=== PATIENT | male | born 1950 | race Caucasian/White ===

== ENCOUNTER 2017-03-29 06:29 | Inpatient (IN) | payer MEDICARE ==
[~2017-03-29] VITALS: Ht 172.7 cm; Wt 92.4 kg
[2017-03-29 07:00] LABS: BASOPHILS 0.1 % (0-2); EOSINOPHILS 0.3 % (0-7); HEMATOCRIT 49.1 % (42.0-54.0); HEMOGLOBIN 16.8 g/dL (13.5-17.5); IMMATURE GRANULOCYTES 0.2 % (0-5); LYMPHOCYTES 10.7 % (15-50); MCH 32.6 pg (26.0-34.0); MCHC 34.2 g/dL (31.0-37.0); MCV 95.3 fL (80.0-100.0); MEAN PLATELET VOLUME 9.4 fL (7.4-10.4); MONOCYTES 5.2 % (2-11); NEUTROPHILS 83.5 % (40-80); PLATELET COUNT 130 10x3/uL (130-400); RBC 5.15 10x6/uL (4.20-6.10); RDW 12.8 % (11.5-14.5)
[2017-03-29 07:24] LABS: ALBUMIN 3.9 g/dL (3.4-5.0); ALKALINE PHOSPHATASE 72 U/L (46-116); ALT (SGPT) 20 U/L (10-68); BILIRUBIN - TOTAL 1.39 mg/dL (0.2-1.3); CALC OSMOLALITY 274 mosm/kg (275-300); CALCIUM 8.6 mg/dL (8.5-10.1); CARBON DIOXIDE 28.3 mmol/L (21.0-32.0); CHLORIDE - SERUM 100 mmol/L (98-107); CREATININE - SERUM 1.1 mg/dL (0.6-1.3); GLUCOSE 124 mg/dL (74-106); POTASSIUM - SERUM 4.3 mmol/L (3.5-5.1); PROTEIN - SERUM 7.2 g/dL (6.4-8.2); SODIUM 137 mmol/L (136-145); UREA NITROGEN 13 mg/dL (7-18); eGFR NON AFRICAN AMERICAN 71 mL/min (90-120)
[2017-03-29 07:36] LABS: CKMB 4.3 U/L (0.0-3.6); CREATINE KINASE 150 UL (21-232)
[2017-03-29 07:38] LABS: TROPONIN-I 0.016 ng/mL (0.000-0.060)
--- NOTE | 2017-03-29 14:26 | NUR ---
TRANSFER FROM ER BY W/C. DUANEINTED TO ROOM. CALL LIGHT IN REACH. WILL CONT. PLAN OF CARE.
[2017-03-29] MEDS ORDERED: BETAPACE 80 MG80 MG PO (14:32)
[2017-03-29] MEDS ORDERED: METOPROLOL TART50 MG PO (14:33)
[2017-03-29] MEDS ORDERED: ZOCOR20 MG PO (14:34)
[2017-03-29] MEDS ORDERED: PRINIVIL20 MG PO (14:34)
[2017-03-29] MEDS ORDERED: LEVOTHYROXINE112 MCG PO (14:35)
[2017-03-29] MEDS ORDERED: PLAVIX75 MG PO (14:35)
[2017-03-29] MEDS ORDERED: ELIQUIS5 MG PO (14:35)
[2017-03-29] MEDS ORDERED: FLOMAX0.4 MG PO (14:36)
[2017-03-29] MEDS ORDERED: ADVAIR 250/501 DISK INH (14:36)
[2017-03-29] MEDS ORDERED: PROAIR HFA8.5 GM INH (14:38)
[2017-03-29 14:55] VITALS: BP 147/87; BMI 32.0
--- NOTE | 2017-03-29 15:09 | NUR ---
ARRIVED FROM ER VIA WC. SOB O2 ON AT 2 L NC. IV IN L FA. SL. MONITOR SHOWS UAF. CARDIZEM GTT STARTED @ 15. WILL CONTINUE TO MONITOR. SEE ASSESSMENT FOR FURTHER EVAL
[2017-03-29 16:35] VITALS: BP 147/87
--- NOTE | 2017-03-29 19:32 | NUR ---
PT SITTING ON SIDE OF BED. CARDIZEM INFUSING @ 15 TO LEFT IV. PT ASKING FOR BREATHING TREATMENT. WILL PAGE RESPRITORY. PT STATES HE NEEDS TO GET TREATMENT AND LEAVE3 BECAUSE HE CARES FOR HIS WHO IS AN AMPUTIEE. PT DENIES ANY OTHER NEEDS. NO S/S OF DISTRESS. BED LOW AND CALL LIGHT IN REACH. WILL CPOC
[2017-03-29 21:56] VITALS: BP 111/63
--- NOTE | 2017-03-30 04:29 | NUR ---
LASIX EARLY- PT C/O DYSPNEA AND SOB. SITTING ON SIDE PT HAS BEEN C/O NEEDING BREATHING TREATMENT BUT IT IS UNAVALIBLE BECAUSE THEY ARE Q6H. PT STATES HE IS VERY UPSET AND SAYS IF HE NEEDS TO LEAVE TO TREAT HIS SYMPTOMS HE WILL. STATES HE HAS BEEN DEALING WITH THESE SYMPTOMS FOR A LONG TIME AND WANTS HIS MEDS TO HELP HIM OR HE WILL LEAVE. PT HAS CRACKLES IN ALL LOBES. PT ON 2L OF O2. LASIX GIVEN EARLY FOR MILD DISTRESS. PT STILL WANTING BREATH TREATMENT LASHANDA. WILL CPOC
--- NOTE | 2017-03-30 05:19 | NUR ---
PT HAS HAD 150 OUTPUT OF CONCENTRATED AJITH URINE. PT DOING A LITTLE BETTER STILL SOB AND HAS DYSPNEA. ASKED AGAIN ABOUT BREATHING TREATMENT. TOLD PT IT CAN BE GIVEN AROUND 0600. RESPRITORY AWARE AND WILL BE HERE AT THAT TIME .PT DENIES ANY NEEDS. BED LOW CALL LIGHT IN REACH.WILL CPOC
[2017-03-30 06:09] VITALS: BP 91/59
--- NOTE | 2017-03-30 06:14 | NUR ---
PT ASLEEP. RESPIRATIONS IRREGULAR UNLABORED. PT AROUSES TO VERBAL STIMULI. STATES HE FEELS MUCH BETTER. STATES HE DOES NOT FEEL LIKE HE IS DROWNING ANY LONGER NOW THAT HE TOOK THE LASIX EARLY. PT EVEN STATED HE THANKS HE CAN WAIT UNTIL 0700 WHEN THE RESPRITORY COMES TO FLOOR WITH ROUND FOR HIS TREATMENT. PT DENIES ANY NEEDS. NO S/S OF DISTRESS.BED LOW AND CALL LIGHT IN REACH. WILL CPOC
[2017-03-30 06:47] LABS: BASOPHILS 0.1 % (0-2); EOSINOPHILS 0 % (0-7); HEMATOCRIT 48.5 % (42.0-54.0); HEMOGLOBIN 16.4 g/dL (13.5-17.5); IMMATURE GRANULOCYTES 0.3 % (0-5); LYMPHOCYTES 7.6 % (15-50); MCH 32.5 pg (26.0-34.0); MCHC 33.8 g/dL (31.0-37.0); MCV 96.2 fL (80.0-100.0); MEAN PLATELET VOLUME 10.1 fL (7.4-10.4); MONOCYTES 3.8 % (2-11); NEUTROPHILS 88.2 % (40-80); RBC 5.04 10x6/uL (4.20-6.10); WBC 18.6 10x3/uL (4.8-10.8)
[2017-03-30 07:01] LABS: ALBUMIN 3.6 g/dL (3.4-5.0); ANION GAP 10.9 mmol/L (8-16); BILIRUBIN - TOTAL 0.71 mg/dL (0.2-1.3); CALCIUM 8.5 mg/dL (8.5-10.1); CARBON DIOXIDE 28.6 mmol/L (21.0-32.0); POTASSIUM - SERUM 4.5 mmol/L (3.5-5.1); PROTEIN - SERUM 7.2 g/dL (6.4-8.2)
[2017-03-30 07:06] LABS: PLATELET COUNT 162 10x3/uL (130-400)
[2017-03-30 07:09] LABS: CREATININE - SERUM 1.8 mg/dL (0.6-1.3)
--- NOTE | 2017-03-30 07:30 | NUR ---
PT SITTING UP IN BED DENIES NEEDS AT THIS TIME WILL CONT TO MONITOR
[2017-03-30 08:03] LABS: MAGNESIUM - SERUM 2.3 mg/dL (1.8-2.4); PHOSPHOROUS 5.5 mg/dL (2.5-4.9)
[2017-03-30 08:43] VITALS: BP 101/64
[2017-03-30 12:37] VITALS: Ht 172.7 cm; Wt 92.4 kg
[2017-03-30 13:09] VITALS: BP 122/65
[2017-03-30 17:17] VITALS: BP 109/59
--- NOTE | 2017-03-30 17:43 | NUR ---
PT SITTING UP IN BED DENIES NEEDS
--- NOTE | 2017-03-30 18:44 | NUR ---
OT NOTE: PT COMPLETED BED MOB WITH MIN A. PT COMPLETED RUE AROM AXS FOR INCREASED AX TOLERANCE. PT COMPLETED SIMPLE ADL WITH SET UP. THANK YOU, RIGOBERTO MEJIA/Sherie
[2017-03-30 21:10] VITALS: BP 98/46
[2017-03-31 00:10] VITALS: BP 95/52
[2017-03-31 05:08] LABS: BASOPHILS 0 % (0-2); EOSINOPHILS 0 % (0-7); IMMATURE GRANULOCYTES 0.2 % (0-5); LYMPHOCYTES 9.7 % (15-50); MCH 32.1 pg (26.0-34.0); MCHC 33.3 g/dL (31.0-37.0); MCV 96.4 fL (80.0-100.0); MEAN PLATELET VOLUME 10.1 fL (7.4-10.4); MONOCYTES 2.2 % (2-11); NEUTROPHILS 87.9 % (40-80); PLATELET COUNT 155 10x3/uL (130-400); RBC 4.67 10x6/uL (4.20-6.10); RDW 13.1 % (11.5-14.5)
[2017-03-31 05:11] VITALS: BP 107/55
[2017-03-31 05:22] LABS: WBC 13.2 10x3/uL (4.8-10.8)
[2017-03-31 05:31] LABS: ALBUMIN 3.2 g/dL (3.4-5.0); ANION GAP 12.4 mmol/L (8-16); BILIRUBIN - TOTAL 0.41 mg/dL (0.2-1.3); CALCIUM 8.1 mg/dL (8.5-10.1); CREATININE - SERUM 1.9 mg/dL (0.6-1.3); MAGNESIUM - SERUM 2.3 mg/dL (1.8-2.4); PHOSPHOROUS 5.3 mg/dL (2.5-4.9); POTASSIUM - SERUM 4.4 mmol/L (3.5-5.1); PROTEIN - SERUM 6.7 g/dL (6.4-8.2)
--- NOTE | 2017-03-31 06:25 | NUR ---
PT ASLEEP RESPIRATIONS EVEN AND UNLABORED. PT WOKE FROM VERBAL STIMULI. PT STATED HE DOESNT KNOW WHAT WAS IN THAT BREATHING TREATMENT BUT IT WORKED... PT WAS ABLE TO REST WELL THROUGHOUT THE NIGHT, THE NIGHT BEFORE HE WAS UP ALL NIGHT. PT DENIES ANY NEEDS AT THIS TIME. NO S/S OF DISTRESS. BED LOW AND CALL LIGHT IN REACH. WILL CPOC
--- NOTE | 2017-03-31 07:30 | NUR ---
RECEIVED PT IN BED AAOX4 RESP UNLABORED SKIN W/D PT DEINES ANY NEEDS OR DISCOMFORT AT THIS TIME NAD NOTED
[2017-03-31 08:06] VITALS: BP 113/59
[2017-03-31 12:20] VITALS: BP 100/51
[2017-03-31 15:31] VITALS: BP 113/62
[2017-03-31 21:08] VITALS: BP 114/55
--- NOTE | 2017-03-31 22:41 | NUR ---
INITIAL ROUNDS COMPLETED AT 1910 HRS. PT REQUESTING BREATHING TX. RT NOTIFIED. ASSESSMENT COMPLETED AT 1950 HRS. VS. A-FLUTTER PER CM HR 96. CARDIZEM DRIP RESTARTED. O2 2LNC. LUNGS DIMINISHED IN BASES BILAT WITH BILAT EXP WHEEZES NOTED. IV TO LAC WITH NS AT 50CC/HR AND CARDIZEM AT 15CC/HR. IV PATENT. SCATTERED BRUISES NOTED OT BILAT ARMS. PM MEDS GIVEN. PT CURRENTLE RESTING WITH EYES CLOSED. RESP EVEN AND REGULAR. SR UP X2, CALL LIGHT WITHIN REACH.
--- NOTE | 2017-04-01 00:12 | NUR ---
A-FLUTTER PER CM HR 105. PT DENIES ANY DISCOMFORT. RT TX IN PROGRESS. WILL CONTINUE TO MONITOR.
[2017-04-01 01:27] VITALS: BP 113/73
--- NOTE | 2017-04-01 02:13 | NUR ---
PT RESTING WITH EYES CLOSED. RESP EVEN AND REGULAR. A-FLUTTER PER CM HR 86. WILL CONTINUE TO MONITOR.
--- NOTE | 2017-04-01 04:50 | NUR ---
PT RESTING WITH EYES CLOSED. RESP EVEN AND REGULAR. SR UP X1, CALL LIGHT WITHIN REACH.
[2017-04-01 05:38] LABS: BASOPHILS 0 % (0-2); EOSINOPHILS 0 % (0-7); HEMATOCRIT 43.5 % (42.0-54.0); HEMOGLOBIN 14.9 g/dL (13.5-17.5); IMMATURE GRANULOCYTES 0.2 % (0-5); LYMPHOCYTES 9.8 % (15-50); MCH 32.3 pg (26.0-34.0); MCHC 34.3 g/dL (31.0-37.0); MONOCYTES 2.7 % (2-11); NEUTROPHILS 87.3 % (40-80); PLATELET COUNT 164 10x3/uL (130-400); RBC 4.62 10x6/uL (4.20-6.10); RDW 12.8 % (11.5-14.5); WBC 10.5 10x3/uL (4.8-10.8)
[2017-04-01 05:49] LABS: MCV 94.2 fL (80.0-100.0)
[2017-04-01 06:05] LABS: ANION GAP 11.2 mmol/L (8-16); BILIRUBIN - TOTAL 0.5 mg/dL (0.2-1.3); CALCIUM 8.2 mg/dL (8.5-10.1); CARBON DIOXIDE 27.1 mmol/L (21.0-32.0); CREATININE - SERUM 1.4 mg/dL (0.6-1.3); POTASSIUM - SERUM 4.3 mmol/L (3.5-5.1); PROTEIN - SERUM 6.4 g/dL (6.4-8.2)
--- NOTE | 2017-04-01 06:44 | NUR ---
VSS THROUGHOUT NIGHT. A-FLUTTER PER CM. PT DENIED ANY DISCOMFORT. WILL CONTINUE TO MONITOR.
[2017-04-01 06:51] VITALS: BP 98/55
--- NOTE | 2017-04-01 07:30 | NUR ---
RESTING QUIETLY DENIES ANY NEEDS OR DISCOMFORT AT THIS TIME
--- NOTE | 2017-04-01 07:35 | NUR ---
ASSESSMENT COMPLETED. TELEMERTY SHOWS ATRIAL FLUTTER AT 73. O2 AT 2LM PER NC. LEFT AC IV WITH NS AT 50 AND CARDIZEN AT 10. AWAKE AND ORIENTED. UP AB HUE. DENIES ANY NEEDS. WILL MONITOR
[2017-04-01 08:24] VITALS: BP 101/49
[2017-04-01 12:11] VITALS: BP 107/69
[2017-04-01 21:07] VITALS: BP 112/54
[2017-04-02 00:58] VITALS: BP 109/52
[2017-04-02 05:19] VITALS: BP 119/63
[2017-04-02 05:45] LABS: BASOPHILS 0 % (0-2); EOSINOPHILS 0 % (0-7); HEMATOCRIT 44.6 % (42.0-54.0); HEMOGLOBIN 15.3 g/dL (13.5-17.5); IMMATURE GRANULOCYTES 0.4 % (0-5); MCH 32.1 pg (26.0-34.0); MCHC 34.3 g/dL (31.0-37.0); MCV 93.7 fL (80.0-100.0); MEAN PLATELET VOLUME 9.7 fL (7.4-10.4); MONOCYTES 3.1 % (2-11); NEUTROPHILS 83.5 % (40-80); PLATELET COUNT 154 10x3/uL (130-400); RBC 4.76 10x6/uL (4.20-6.10); RDW 12.6 % (11.5-14.5)
[2017-04-02 06:36] LABS: ALBUMIN 3.1 g/dL (3.4-5.0); ANION GAP 13.4 mmol/L (8-16); BILIRUBIN - TOTAL 0.5 mg/dL (0.2-1.3); CALCIUM 8.6 mg/dL (8.5-10.1); CARBON DIOXIDE 25.4 mmol/L (21.0-32.0); CREATININE - SERUM 1.1 mg/dL (0.6-1.3); POTASSIUM - SERUM 4.8 mmol/L (3.5-5.1); PROTEIN - SERUM 6.5 g/dL (6.4-8.2)
[2017-04-02 07:39] VITALS: BP 132/66
--- NOTE | 2017-04-02 07:50 | NUR ---
ASSESSMENT DONE. DENIES NEEDS
--- NOTE | 2017-04-02 09:53 | NUR ---
RESP UL ON . IV PATENT. UP SOB WITH CALL LIGHT IN REACH. WILL MONITOR NEEDS.
[2017-04-02 11:56] VITALS: BP 130/60
[2017-04-02 15:51] VITALS: BP 143/88
--- NOTE | 2017-04-02 17:57 | NUR ---
WITHOUT CHANGES OR DISTRESS NOTED AT THIS TIME. DENIES NEEDS
[2017-04-02 19:00] VITALS: BP 126/98
--- NOTE | 2017-04-02 19:45 | NUR ---
PT STANDING AT DOOR OF ROOM, UPSET OVER NOT GETTING HIS BREATHING TREATMENT. PAGED RESPIRATORY AND FOUND OUT THEY HAD SEVERAL EMERGENCIES AND WERE BEGINNING THE SCHEDULED TREATMENTS LASHANDA. EXPLAINED THIS TO PATIENT. ALSO NOTED THAT PT HAD DRIED BLOOD ALL OVER HIS FLOOR. HOUSEKEEPING CLEANED ENTIRE FLOOR. PT STATES IT IS FROM HIS IV COMING LOOSE BACK BEFORE DINNER. PT IS IN NO RESPIRATORY DISTRESS. RT WILL BE HERE SHORTLY.
--- NOTE | 2017-04-02 21:18 | NUR ---
BEDTIME MEDS GIVEN. IV ABT UP AND INFUSING. PT NOW JOKING AND CONVERSING WELL WITH NURSE. RT HAS BEEN TO ROOM AND PROVIDED TREATMENT.
[2017-04-03 04:00] VITALS: BP 133/76
[2017-04-03 05:16] LABS: BASOPHILS 0 % (0-2); EOSINOPHILS 0 % (0-7); HEMATOCRIT 45.8 % (42.0-54.0); HEMOGLOBIN 15.7 g/dL (13.5-17.5); IMMATURE GRANULOCYTES 0.4 % (0-5); LYMPHOCYTES 11.4 % (15-50); MCH 32.1 pg (26.0-34.0); MCHC 34.3 g/dL (31.0-37.0); MCV 93.7 fL (80.0-100.0); MEAN PLATELET VOLUME 9.8 fL (7.4-10.4); MONOCYTES 4.9 % (2-11); NEUTROPHILS 83.3 % (40-80); PLATELET COUNT 166 10x3/uL (130-400); RBC 4.89 10x6/uL (4.20-6.10); RDW 12.4 % (11.5-14.5)
[2017-04-03 05:53] LABS: ALKALINE PHOSPHATASE 46 U/L (46-116); CALC OSMOLALITY 278 mosm/kg (275-300); CALCIUM 8.5 mg/dL (8.5-10.1); CARBON DIOXIDE 29.2 mmol/L (21.0-32.0); CHLORIDE - SERUM 99 mmol/L (98-107); GLUCOSE 146 mg/dL (74-106); POTASSIUM - SERUM 4.8 mmol/L (3.5-5.1); PROTEIN - SERUM 6.2 g/dL (6.4-8.2); SODIUM 134 mmol/L (136-145); UREA NITROGEN 36 mg/dL (7-18); eGFR NON AFRICAN AMERICAN 79 mL/min (90-120)
[2017-04-03 05:58] LABS: ALT (SGPT) 34 U/L (10-68)
--- NOTE | 2017-04-03 07:15 | NUR ---
ASSESSMENT DONE. DENIES NEEDS.
[2017-04-03 07:41] VITALS: BP 116/71
--- NOTE | 2017-04-03 09:02 | NUR ---
UP SOB WITH CALL LIGHT IN REACH. RESP UL ON . IV PATENT. NO NEEDS VOICED. WILL CONT. PLAN OF CARE.
[2017-04-03 11:19] VITALS: BP 120/68
[2017-04-03 15:45] VITALS: BP 110/62
--- NOTE | 2017-04-03 16:31 | NUR ---
OT NOTE: PT COMPLETED DYNAMIC BALANCE WITH CGA. PT COMPLETED BED MOB WITH SPV. PT COMPLETED SIMPLE HYGIENE TASK WITH SET UP. THANK YOU, AZIZA MEJIA
--- NOTE | 2017-04-03 17:32 | NUR ---
WITHOUT CHANGES OR DISTRESS NOTED AT THIS TIME.DENIES NEEDS
--- NOTE | 2017-04-03 19:22 | NUR ---
AMUBULATING IN GELLER, GAIT STEADY.
[2017-04-03 20:23] VITALS: BP 152/87
--- NOTE | 2017-04-03 20:45 | NUR ---
HS MEDS GIVEN WITH FRESH ICE WATER, PT DENIES PAIN OR NEEDS, BED LOW, CL IN REACH.
--- NOTE | 2017-04-04 01:05 | NUR ---
PT IN BED RESTING QUIETLY. BREATHING EVEN AND UNLABORED. BED IN LOW POSITION, CALL LIGHT WITHIN REACH. WILL CTM.
[2017-04-04 01:50] VITALS: BP 99/59
--- NOTE | 2017-04-04 04:23 | NUR ---
RESTING WITH EYES CLOSED, RESPERATIONS EVEN, NO S/S DISTRESS NOTED.
[2017-04-04 05:54] VITALS: BP 111/67
[2017-04-04 07:00] VITALS: BP 168/83
--- NOTE | 2017-04-04 09:59 | NUR ---
UP SOB WITH CALL LIGHT IN REACH. RESP UL ON . IV PATENT. WILL CONT. PLAN OF CARE.
[2017-04-04 11:00] VITALS: BP 140/83
--- NOTE | 2017-04-04 12:19 | CN ---
PATIENT NAME:BRANDEE MASCORRO MEDICAL RECORD: [id number] : [birth year] LOCATION:[facility] D.2122 ADMIT DATE: 03/29/17 ACCOUNT: [id number] CONSULTING PHYSICIAN: ANABEL ALICEA MD REFERRING PHYSICIAN: MIRIAM BOUCHER MD DATE OF CONSULTATION: 03/30/2017 HISTORY OF PRESENT ILLNESS: A 66-year-old gentleman with a known history of coronary artery disease status post coronary bypass grafting, has recently established in our office, was seen with a new onset atrial flutter, started on sotalol and Eliquis, developed upper respiratory tract infection and had rolanda volume overload. EF previously was 30% back in January. Rate is up to 150, currently rates improved. He is diuresing fairly nicely. PAST MEDICAL HISTORY: Includes; 1. History of coronary artery disease as described above. 2. Cardiomyopathy, presumed ischemic, EF 30% to 35%. 3. Atrial flutter. 4. Dyslipidemia. 5. Hypothyroidism, on replacement. ALLERGIES: None known. MEDICATIONS: Include Synthroid 112 mcg every day, lisinopril 20 every day, simvastatin 20 every day, Betapace 80 b.i.d., Plavix 75 every day, Eliquis 5 b.i.d., ProAir inhaler 1 puff q.4. SOCIAL HISTORY: , lives in [place], is able to take care of his all ADLs and assist with his who has a left AKA. REVIEW OF SYSTEMS: The patient reports easy bruising but reports no swollen glands. The patient reports no fever, no night sweats, no significant weight gain, no significant weight loss. No significant exercise tolerance. The patient reports no dry eyes, no irritation, no vision change. Patient reports no difficulty hearing and no ear pain. Patient reports no frequent nose bleeds or nose and sinus problems. Patient reports on arm pain on exertion. No shortness of breath while lying down. No history of heart murmur. Patient reports no cough, no wheezing or coughing up blood. Patient reports no abdominal pain, no vomiting. Normal appetite. No diarrhea and not vomiting blood. No nausea and no constipation. Patient reports no incontinence. No difficulty urinating. No hematuria. No increased frequency. Patient reports no muscle aches. No weakness, no arthralgias, no back pain. No swelling of the extremities. Patient reports no abnormal mole, no jaundice, no rashes. Reports no loss of consciousness. No weakness and no numbness. No seizures, dizziness, or headaches. The patient reports no depression, no sleep disturbance, feeling safe in a relationship and no alcohol abuse. Patient reports on fatigue. Reports no runny nose or sinus pressure. No itching, no hives, and no frequent sneezing. PHYSICAL EXAMINATION: GENERAL: Pleasant gentleman in no acute distress. VITAL SIGNS: Blood pressure 91/59, pulse currently is 100. HEENT: Normocephalic. NECK: No bruits are noted. HEART: Irregular, rate is around 100. There is a II/ systolic ejection CONSULT REPORT [id number] BRANDEE MASCORRO murmur. I do not hear an S3. LUNGS: Diminished air movement in the bases. ABDOMEN: Soft, nontender. EXTREMITIES: Pulses 1+ and 1+ edema. NEUROLOGIC: Grossly intact. DIAGNOSTIC DATA: ECG on admission shows atrial flutter 2:1, nonspecific ST-T changes. IMPRESSION: At this point in time, we will add digoxin to help with rate control and provide inotropic support. If pressures improve, could increase the Betapace as well. Continue anticoagulation. We will also add Aldactone for myopathic purposes. As URI improves, could consider cardioversion. Further recommendations based on above. TRANSINT:[id number] Voice Confirmation ID: [id number] DOCUMENT ID: [id number] ANABEL ALICEA MD at 1219 CC: [id number] DICTATION DATE: 03/30/17 0837 ROTARY CUTTER FEEDER: 03/30/17 1301 ADM IN [place] [id number] [place] [id number]
[2017-04-04] MEDS ORDERED: LANOXIN125 MCG PO (14:05)
[2017-04-04] MEDS ORDERED: ALDACTONE25 MG PO (14:05)
[2017-04-04] MEDS ORDERED: TESSALON PERLE100 MG PO (14:05)
[2017-04-04] MEDS ORDERED: NICODERM C1 PATCH .2 TRANSDERM (14:05)
[2017-04-04] MEDS ORDERED: DOXYCYCLINE HY100 M2 PO (14:10)
[2017-04-04] MEDS ORDERED: FLORAJEN3 CAPS460 MG PO (14:11)
[2017-04-04] MEDS ORDERED: PREDNISONE10 MG PO (14:12)
--- NOTE | 2017-04-04 15:18 | NUR ---
DISCHARGE INSTRUCTIONS REVIEWED WITH PATIENT. IV REMOVED AT THIS TIME CATHETER INTACT. NO PROBLEMS NOTED AT THIS TIME. NO SIGNS OR SYMPTOMS OF DISTRESS NOTED. PATIENT LEFT FACILITY AT THIS TIME WITH FAMILY VIA PRIVATE TRANSPORT.
--- NOTE | 2017-04-05 10:13 | NUR ---
Patient Name: BRANDEE MASCORRO Admission Status: ER Accout number: [id number] Admission Date: 03-29-2017 : 1950 Admission Diagnosis:SHORTNESS OF BREATH Attending: MIRIAM ARROYO Current LOS: 6 Anticipated DC Date: 04-04-2017 Planned Disposition: Home Primary Insurance: [facility] LATE ENTRY FROM 04-04-17, 1445 HOURS: Discharge Planning Comments: * Is the patient Alert and Oriented? Yes 0 * How many steps to enter\exit or inside your home? NONE 0 * PCP DR. WILLIS 0 * Pharmacy [facility] 0 * Preadmission Environment Home with Family 0 * ADLs Independent 0 * Equipment Nebulizer Oxygen 0 * Other Equipment HOME OXYGEN ONLY [facility] 0 * List name and contact numbers for known caregivers / representatives who currently or will assist patient after discharge: ROLLY REAGAN, MAIKEL MASCORRO, DTR IN LAW, NUMBER UNKNOWN 0 * Community resources currently utilized None 0 * Please name any agencies selected above. NONE 0 * Additional services required to return to the preadmission environment? No 0 * Can the patient safely return to the preadmission environment? Yes 0 * Has this patient been hospitalized within the prior 30 days at any hospital? No 0 CM MET WITH PT IN ROOM TO DISCUSS DISCHARGE PLANNING AND NEEDS. PT REPORTS LIVING AT HOME INDEPENDENTLY WITH SPOUSE. PT HAS NEBULIZER AND HOME OXYGEN FROM [facility] IN [facility]. PT HAS NO OUTSIDE SERVICES ASSISTING IN THE HOME. CM DISCUSSED AVAILABILITY OF HOME HEALTH, REHAB SERVICES AND MEDICAL EQUIPMENT. PT DENIES DISCHARGE NEEDS, REPORTS HIS SPOUSE WILL PICK HIM UP FOR DISCHARGE HOME. IMPORTANT MESSAGE FROM MEDICARE PROVIDED AND EXPLAINED. Stem Teacher: Souleymane Fan
--- NOTE | 2017-04-12 14:06 | CN ---
PATIENT NAME:BRANDEE DUKE MEDICAL RECORD: [id number] : [birth year] LOCATION:[facility] D.2122 ADMIT DATE: 03/29/17 ACCOUNT: [id number] CONSULTING PHYSICIAN: ELIE TURCIOS MD REFERRING PHYSICIAN: MIRIAM BOUCHER MD DATE OF CONSULTATION: 03/30/2017 CONSULT REQUESTING PHYSICIAN: Dr. Jaki Boucher. REASON FOR CONSULTATION: Acute exacerbation of chronic obstructive pulmonary disease, shortness of breath, and pulmonary edema. HISTORY OF PRESENT ILLNESS: Mr. Duke is a 66-year-old gentleman who was admitted yesterday for worsening shortness of breath, cough productive of yellow-green colored sputum production. Denies any fever and chill. He was smoking until 2 days ago. On evaluation in the ER, it was found he was in pulmonary edema, significant leukocytosis, and atrial fibrillation and flutter. He also had onset of wheezing and coughing, which is productive with yellow color sputum production. REVIEW OF SYSTEMS: Mainly in the history of present illness. PAST MEDICAL HISTORY: 1. COPD. 2. Atrial fibrillation. 3. Asthma. 4. Chronic hypoxic respiratory failure. 5. Chronic sinusitis. 6. Tobacco dependence syndrome. ALLERGIES: There are no known drug allergies. MEDICATIONS: HeyBubble is reviewed. PERSONAL SOCIAL HISTORY: The patient is still current everyday smoker, he claims he quit it 2 days ago at the time of hospitalization. FAMILY HISTORY: Noncontributory. PHYSICAL EXAMINATION: GENERAL: The patient is lying comfortably in bed. He is not in acute distress. VITAL SIGNS: The blood pressure is 122/65, pulse is 82, respirations 16, temperature 97.3, SPO2 is 93% on 2 liter nasal cannula. HEENT: Conjunctivae pink, sclerae nonicteric. NECK: Neck is supple, no JVD. CHEST: The chest excursion is minimal on both sides. There are bilateral crackles, wheeze on forceful expiration. HEART: Rate and rhythm irregular. Normal sound. No murmur. ABDOMEN: Abdomen is soft. Bowel sounds present. No hepatosplenomegaly. RECTAL: Deferred. EXTREMITIES: No cyanosis, no clubbing, and no pedal edema. SKIN: The skin is warm, normal turgor. CENTRAL NERVOUS SYSTEM: The patient is awake and alert. There is no obvious cranial nerve abnormality. The gait was not tested. CONSULT REPORT [id number] BRANDEE DUKE LABORATORY DATA AND DIAGNOSTIC STUDIES: Chest radiograph, there is increased interstitial marking. CBC: WBC 16,000, hemoglobin 16.8, hematocrit 49.1, and the platelet count is 130. Chemistry: Sodium 137, potassium 4.3, BUN is 13, creatinine 1.1, and glucose 124. IMPRESSION: 1. Acute exacerbation of chronic obstructive pulmonary disease. 2. Fdaph-cr-qhvtfha hypoxic respiratory failure. 3. Pulmonary edema. 4. Congestive heart failure, possible diastolic dysfunction. 5. Tracheobronchitis, suspect pneumonitis. 6. Atrial fibrillation. 7. Leukocytosis. 8. Tobacco dependence syndrome. RECOMMENDATION: 1. The patient was counseled to quit smoking. 2. Xopenex nebulizer 0.63 mg and ipratropium q.6 hourly, albuterol and ipratropium nebulizer q.12 hourly. 3. Methylprednisolone IV. 4. Start on doxycycline 100 mg b.i.d. 5. Cardiac workup and rhythm control per Dr. Conn. 6. Follow up labs and chest radiograph. Thank you for involving me in the care of Mr. Duke. TRANSINT:[id number] Voice Confirmation ID: [id number] DOCUMENT ID: [id number] ELIE TURCIOS MD at 1406 CC: NEGRITA WILLIS DO [id number] DICTATION DATE: 03/30/17 163 CEMENT BASED MATERIALS PUMP TENDER: 03/30/17 1704 DIS IN 04/04/17 [place] [id number] [place] [address]
== END 2017-04-04 15:21 | disposition home or self-care (01) | DRG 291 ==
LOC: D.ER 06:29 → D.M2 13:38 → D.SDCHOLD 04-02 14:35 → D.M2 04-02 14:36
PROVIDERS: Family Medicine; ADMIT Family Medicine
DX: I50.21 Acute systolic (congestive) heart failure (principal); J96.21 Acute and chronic respiratory failure with hypoxia; I48.92 Unspecified atrial flutter; J98.11 Atelectasis; I42.9 Cardiomyopathy, unspecified; J44.1 Chronic obstructive pulmonary disease with (acute) exacerbation; I25.10 Atherosclerotic heart disease of native coronary artery without angina pectoris; F17.200 Nicotine dependence, unspecified, uncomplicated; I48.91 Unspecified atrial fibrillation; E78.5 Hyperlipidemia, unspecified; J30.9 Allergic rhinitis, unspecified; E03.9 Hypothyroidism, unspecified; N18.9 Chronic kidney disease, unspecified; J02.9 Acute pharyngitis, unspecified; Z95.1 Presence of aortocoronary bypass graft

== ENCOUNTER → 2017-08-17 09:52 | Outpatient (CLI) | payer MEDICARE ==
[2017-03-30 12:37] VITALS: BMI 28.1
[~2017-08-17 09:52] MED LIST: ADVAIR 250/501 DISK INH; ALDACTONE25 MG PO; BETAPACE 80 MG80 MG PO; DOXYCYCLINE HY100 M2 PO; ELIQUIS5 MG PO; FLOMAX0.4 MG PO; FLORAJEN3 CAPS460 MG PO; LANOXIN125 MCG PO; LEVOTHYROXINE112 MCG PO; METOPROLOL TART50 MG PO; NICODERM C1 PATCH .2 TRANSDERM; PLAVIX75 MG PO; PREDNISONE10 MG PO; PRINIVIL20 MG PO; PROAIR HFA8.5 GM INH; TESSALON PERLE100 MG PO; ZOCOR20 MG PO
== END | disposition home or self-care (01) ==
LOC: D.LAB 09:52 → D.CT 10:30
DX: J18.9 Pneumonia, unspecified organism (principal)

== ENCOUNTER → 2018-09-06 09:09 | Outpatient (CLI) | payer MEDICARE ==
[2017-03-30 12:37] VITALS: BMI 28.1
== END | disposition home or self-care (01) ==
LOC: D.CT 09:09
PROVIDERS: ATTEND Family Medicine
DX: R94.39 Abnormal result of other cardiovascular function study (principal)

== ENCOUNTER → 2018-09-24 09:18 | Outpatient (CLI) | payer MEDICARE ==
[2017-03-30 12:37] VITALS: BMI 28.1
--- NOTE | 2018-09-30 15:03 | EC ---
PATIENT:BRANDEE MASCORRO DATE OF SERVICE: 09/24/18 SEX: M MEDICAL RECORD: [id number] DATE OF : [birth year] LOCATION:D[facility] AGE OF PATIENT: 67 ADMISSION DATE: 09/24/18 REFERRING PHYSICIAN: INTERPRETING PHYSICIAN: ANABEL ALICEA MD ECHOCARDIOGRAM REPORT ECHO CHARGES 4 ECHO COMPLETE Date: 09/24/18 CLINICAL DIAGNOSIS: CARDIOMYOPATHY/DYSPNEA H/O HTN/A-FIB ECHOCARDIOGRAPHIC MEASUREMENTS (adult normal given) AC root (d.<3.7cm) 3.1 cm LV Septum d (<1.2 cm> 0.9 cm Valve Excursion 1.6 cm LV Septum (systole) 1.3 cm Left Atria (s.<4.0cm> 5.0 cm LVPW d(<1.2cm) 1.0 cm RV (d.<2.3cm) 3.2 cm LVPW (sytole) 1.6 cm LV diastole(<5.6CM) 5.9 cm MV E-F(>70mm/sec) cm LV systole 3.8 cm LVOT Diameter 2.1 cm MV exc.(>10mm) cm Est.ejection fraction (50-75%) % DOPPLER: LVIT cm/sec A 55.0 cm/sec E 61.0 cm/sec LA cm/sec RVSP 42.0 mmHg LVOT 114 cm/sec AOP1/2T m/s Asc. Ao 147 cm/sec RVOT 55.0 cm/sec RA cm/sec PA 89.0 cm/sec AV Gradient Peak 8.6 mmHg AV Mean 4.8 mmHg AV Area 2.4 cm MV Gradient Peak 2.7 mmHg MV Mean 0.88 mmHg MV Area cm COMMENTS: OP - HC Corrections Lieutenant: 1 GLEN ANASTASIA [employer] Consultant: 3 Dr. Conn TAPE# PACS Pericardial Effusion N DATE OF SERVICE: Adequate 2D, color flow imaging, spectral Doppler, and M-Mode No LVH. LV internal dimension is dilated. LV is globally hypokinetic with reduced EF, estimated EF 40% to 45%. Aortic valve is sclerosis without evidence of stenosis by Doppler interrogation. Left atrium is dilated at 5 cm. Mitral valve shows no prolapse. Trace MR. Right-sided chambers are grossly normal. Trace TR. ECHOCARDIOGRAM REPORT [id number] BRANDEE MASCORRO TRANSINT:[id number] Voice Confirmation ID: [id number] DOCUMENT ID: [id number] ANABEL ALICEA MD at 1503 CC: [id number] DICTATION DATE: 09/26/18 1303 PUBLIC HEALTH STAFF NURSE: 09/26/18 1339 DEP CLI 09/24/18 [place] [id number] [place] [id number]
== END | disposition home or self-care (01) ==
LOC: D.HCCARDIO 09:18
PROVIDERS: ATTEND Internal Medicine Interventional Cardiology
DX: I25.10 Atherosclerotic heart disease of native coronary artery without angina pectoris (principal)

== ENCOUNTER 2018-10-15 12:01 | Inpatient (IN) | payer MEDICARE ==
[~2018-10-15] VITALS: Ht 172.7 cm; Wt 74.1 kg
--- NOTE | ~2018-10-15 | HEMODYNAMI ---
PATIENT:BRANDEE MASCORRO MEDICAL RECORD: [id number] : 48 [id number] ADMISSION DATE: 10/22/18 Generatedon:10/22/201814:49 Patient name: BRANDEE MASCORRO Patient #: [id number] SSN: : 1950 Date of study: 10/22/2018 Page: Of Hemodynamic Procedure Report Patient Data Patient Demographics Procedure consent was obtained First Name: BRANDEE Gender: Male Last Name: SUBHA : 1950 Middle Initial: E Age: 67 year(s) Patient #: [id number] Race: Unknown Additional ID: [id number] Contact details [address]: [address] [place] [address] State: [place] City: [place] Zip code: [address] Admission Admission Data Admission Date: 10/22/2018 Admission Time: 11:26 Room #: [facility] Procedure Procedure Types Cath Procedure Peripheral Cath Diagnostic Procedure Miscellaneous Procedure Description Procedure Date Procedure Date: 10/22/2018 Procedure Start Time: 13:40 Procedure Staff Name Function Manjeet Clemente MD Performing Physician Raza Bartlett RT Monitor ALEN GAXIOLA RT Scrub Denisse Andrade RN Nurse Procedure Data Cath Procedure Fluoroscopy Diagnostic fluoroscopy Total fluoroscopy Time: 7.9 time: 7.9 min min Diagnostic fluoroscopy Total fluoroscopy dose: 522 dose: 522 mGy mGy Contrast Material Contrast Material Type Amount (ml) Isovue 300 80 Entry Location Entry Primary Successful Side Size Upsize Upsize Entry Closure Succes sful Closure Location (Fr) 1 (Fr) 2 (Fr) Remarks Device Remarks Femoral Right 5 Fr 6 Fr Mynx artery Long Fitness Sales Consultant 6Fr/7Fr Diagnostic catheters Device Type Used For End Catheter Placement Merit Milana Keatingstein 5FR. 100CM catheter ([id number]) Procedure Medications Medication Administration Route Dosage Heparin Flush Bag added to field 4 bags (1000units/500ml NS) Lidocaine 1% added to field 20 Versed I.V. 1 mg Fentanyl I.V. 50 mcg Heparin Bolus I.V. 4000 units Versed I.V. 0.5 mg Fentanyl I.V. 25 mcg Hemodynamics Rest Heart Rate: 92 (bpm) Snapshots Pre Cath Intra NCS Post Cath Vital Signs Time Heart Resp SPO2 etCO2 NIBP (mmHg) Rhythm Pain Sedation Rate (ipm) (%) (mmHg) Status Level (bpm) 13:32:55 92 19 95 30 180/96(141) NSR 0 (11) 10(A) , No pain 13:37:17 94 18 94 29.9 177/93(137) NSR 0 (11) 10(A) , No pain 13:41:40 89 15 93 30 169/84(116) NSR 0 (11) 10(A) , No pain 13:46:00 89 17 94 32.9 168/88(121) NSR 0 (11) 10(A) , No pain 13:50:20 86 15 96 36.7 168/86(126) NSR 0 (11) 8(A) , No pain 13:54:42 76 15 98 35.2 145/71(101) NSR 0 (11) 8(A) , No pain 13:59:02 81 17 98 32.2 133/64(98) NSR 0 (11) 8(A) , No pain 14:03:16 80 17 97 21 142/66(108) NSR 0 (11) 8(A) , No pain 14:07:32 81 16 97 32.2 145/72(112) NSR 0 (11) 8(A) , No pain 14:11:48 80 17 97 33 147/73(116) NSR 0 (11) 8(A) , No pain 14:16:04 81 16 96 30 144/78(114) NSR 0 (11) 8(A) , No pain 14:20:22 77 16 97 29.9 128/67(100) NSR 0 (11) 8(A) , No pain 14:24:36 74 16 96 29.2 130/62(97) NSR 0 (11) 8(A) , No pain 14:28:48 76 16 96 30.7 139/71(97) NSR 0 (11) 8(A) , No pain 14:33:04 76 16 96 33.7 134/69(99) NSR 0 (11) 8(A) , No pain 14:37:18 71 16 96 32.2 141/71(99) NSR 0 (11) 8(A) , No pain 14:41:34 74 16 96 31.4 134/70(110) NSR 0 (11) 8(A) , No pain 14:45:48 68 16 96 32.2 127/69(104) NSR 0 (11) 8(A) , No pain Medications Time Medication Route Dose Verified Delivered Reason Notes Effec tiveness by by 13:39:19 Heparin Flush added 4 Manjeet Burroughs used for Bag to bags Bryn Clemente procedure (1000units/500ml field MD [place] NS) 13:39:36 Lidocaine 1% added 20ml Manjeet Burroughs used for to vial Bryn Clemente procedure field MD [place] 13:48:53 Versed I.V. 1 mg Manjeet Salcedo for Bryn Andrade RN sedation 13:49:13 Fentanyl I.V. 50 Manjeet Steini for mcg Bryn Andrade RN sedation 13:56:13 Heparin Bolus I.V. 4000 Manjeet Salcedo used for units Bryn Andrade forging machine hand 14:17:41 Versed I.V. 0.5 Manjeet Steini for mg Bryn Andrade RN sedation 14:17:52 Fentanyl I.V. 25 Manjeet Steini for mcg Bryn Andrade RN sedation Procedure Log Time Note 13:16:58 Raza Bartlett RT (R) (CV) sent for patient. Start room use. 13:17:05 Time tracking: Regular hours (M-F 7:00 - 5:00) 13:17:10 Plan of Care:Hemodynamics will remain stable., Cardiac rhythm will remain stable., Comfort level will be maintained., Respiratory function will remain adequate., Patient/ family verbilizes understanding of procedure., Procedure tolerated without complication., Recovers from procedure without complications.. 13:17:15 Patient received from Outpatients to IR Alert and oriented. Tansferred to table in Supine position. 13:17:17 Correct patient and procedure confirmed by team. 13:17:18 Signed procedure consent form obtained from patient. 13:17:19 ECG and BP/O2 sat monitors applied to patient. 13:17:22 Use device set IR Diagnostic 13:17:24 ACIST Syringe (01561) opened to sterile field. 13:17:24 ACIST Hand Control (41117) opened to sterile field. 13:17:24 ACIST Manifold (67638) opened to sterile field. 13:17:25 Bag Decanter (2001S) opened to sterile field. 13:17:25 Sterile Angiographic Pack opened to sterile field. 13:17:25 Tegaderm 4 x 4 (1626W) opened to sterile field. 13:17:29 Full Disclosure recording started 13:17:29 - 13:17:33 H&P Date Dictated: 10/22/2018 H&P Addendum completed by physician on day of procedure. (MUST COMPLETE FOR ALL OUTPATIENTS). 13:17:34 Pre-procedure instructions explained to patient. 13:17:35 Pre-op teaching completed and patient verbalized understanding. 13:17:36 Family in waiting room. 13:17:51 Patient NPO since Midnight. 13:17:56 Is the patient allergic to Iodine/contrast media? No. 13:17:58 Is patient on blood thinner?Yes 13:18:00 ACC The patient was administered the following blood thiners within the last 24 hours: ACCPlavix 13:18:02 Patient diabetic? Yes. 13:18:07 If diabetic: On Metformin? Yes 13:19:02 - 13:19:02 ----Pre-sedation anethsthesia assessment.---- 13:19:05 Previous problem with sedation/anesthesia? No ? 13:19:07 Snore? Yes 13:19:09 Sleep apnea? No 13:19:12 Deviated septum? No 13:19:13 Opens mouth fully? Yes 13:19:14 Sticks out tongue? Yes 13:19:19 Airway obstruction? Yes copd 13:19:26 Dentures? Yes out 13:31:48 Vital chart was started 13:31:49 Baseline sample Acquired. 13:31:53 Sharps counted by scrub and verified by R.N. 13:31:53 Alarms reviewed by R. N. 13:31:57 Pre procedure: right dorsailis pedis pulse Doppler 13:31:59 Pre procedure: left dorsailis pedis pulse Doppler 13:32:02 Pre procedure: right posterior tibial pulse Doppler 13:32:04 Pre procedure: left posterior tibial pulse Doppler 13:32:08 Patient pain scale 0/10 no pain. 13:32:14 IV patent on arrival in left wrist with 0.9% NaCl at [facility]. 13:32:17 Right groin area was prepped with chlora-prep and draped in sterile fashion 13:39:19 Heparin Flush Bag (1000units/500ml NS) 4 bags added to field was administered by Manjeet Clemente MD; used for procedure; 13:39:36 Lidocaine 1% 20ml vial added to field was administered by Manjeet nevarez MD; used for procedure; 13:40:02 Physician arrived 13:40:03 Physician arrived 13:40:03 --------ALL STOP TIME OUT------ 13:40:07 Final Timeout: patient, procedure, and site verified with staff and physician. All members of the team are in agreement. 13:40:09 Right groin site verified by team. 13:40:14 Fire Safety Assessment: A--An alcohol-based skin anteseptic being used preoperatively., C--Open oxygen or nitrous oxide is being used. 13:40:19 2) 60-89 Mildly reduced kidney function, and other findings (as for stage 1) point to kidney disease. 13:40:25 Sedation plan: IV Moderate Sedation Medication:Versed, Fentanyl 13:40:28 Procedure started. 13:40:38 Local anesthetic to right femoral artery with Lidocaine 1% by Manjeet Clemente MD.INITIAL ACCESS ONLY 13:40:40 CHOICE PT Extra Support J 300cm guide wire ([id number]) opened to steril e field. 13:40:40 SHEATH 5FR [place] (DZL879) opened to sterile field. 13:40:41 INFLATOR BasixTOUCH (IL0027) opened to sterile field. 13:40:41 BOGGS 260 wire (G10341) opened to sterile field. 13:40:52 A 5 Fr sheath was inserted into the Right Femoral artery 13:42:41 Cook RAABE 6FR. 90cm guide sheath opened to sterile field. 13:42:51 Sheath upsized to a 6 Fr Long. 13:46:44 A Luminate Sheridan 5FR. 100CM catheter ([id number]) was advanced over the wire and used for . 13:46:52 SPIDER EMBOLIC PROTECTION DEVICE 4MM ([id number]) opened to sterile field. 13:48:53 Versed 1 mg I.V. was administered by Denisse Andrade RN; for sedation; 13:49:13 Fentanyl 50 mcg I.V. was administered by Denisse Andrade RN; for sedation; 13:56:13 Heparin Bolus 4000 units I.V. was administered by Denisse Andrade RN; used for procedure; 14:04:32 PROTEGE RX TAPERED 8-6MM X 30MM X 135CM stent ([id number]) was deploye d across Undefined1 . 14:04:43 Inflate balloon Inflation number: 1 A Parker Plus 6 x 2 x 130 Balloon ([id number]) was prepped and advanced across the Undefined1 , then inflated to 8 CHELSEA for 0:03 (min:sec) . 14:17:41 Versed 0.5 mg I.V. was administered by Denisse Andrade RN; for sedation; 14:17:52 Fentanyl 25 mcg I.V. was administered by Denisse Andrade RN; for sedation; 14:25:02 SHEATH 6FR [place] (CFJ964) opened to sterile field. 14:32:53 MYNX PROTECTION MANAGER 6FR/7FR (QP9842) opened to sterile field. 14:34:34 Sheath removed intact; hemostasis achieved with Mynx Fitness Sales Consultant 6Fr/7Fr to th e Right Femoral artery. 14:36:05 Procedure ended.(Physican Out) 14:36:29 Fluoroscopy time 07.90 minutes. 14:36:33 Fluoroscopy dose: 522 mGy 14:36:33 Flurop Dose total: 522 14:36:38 Contrast amount:Isovue 300 80ml. 14:36:39 Sharps counted by scrub and verified by R.N. 14:36:41 Insertion/operative site no bleeding no hematoma. 14:36:46 Post-op/insertion site Right Femoral artery dressed using a 4 x 4 and Tegaderm. 14:36:52 Post right femoral artery:stable 14:36:54 Post Procedure Pulses reassessed and unchanged 14:37:00 Post procedure instruction explained to patient.Patient verbalizes understanding. 14:37:01 Procedure and supply charges have been captured, reviewed, submitted an d are correct. 14:48:37 Report given to ICU. 14:48:42 Patient transfered to ICU with Bed. 14:49:03 Vital chart was stopped Intervention Summary Intervention Notes Time ActionType Lesion and Equipment Used Action# Pressure Duration Attributes 14:04:32 Deploy self Undefined1 PROTEGE RX 1 expanding TAPERED 8-6MM stent X 30MM X 135CM stent ([id number]) 14:04:43 Inflate Undefined1 Parker Plus 6 1 8 00:03 balloon x 2 x 130 Balloon ([id number]) Device Usage Item Name Manufacture Quantity Catalog Number Hospital Part Current Minimal Lot# / Charge Number Stock Stock Serial# Code ACIST Syringe Acist 1 35305 537437 099508 358196 20 (47953) Medical Systems Inc ACIST Hand Acist 1 41194 782573 531604 197409 5 Control Medical (12600) Systems Inc ACIST Manifold Acist 1 55054 665020 371534 920517 5 (14147) Medical Systems Inc Bag Decanter Microtek 1 2001S 344424 26926 900754 5 (2001S) Medical Inc. Sterile Cardinal 1 [id number] 064186 555726 5 Angiographic Health Pack Tegaderm 4 x 4 3M 1 1626W 366051 335739 215735 5 (1626W) CHOICE PT [place] 1 [id number] 360510 5 [id number] Extra Support Scientific J 300cm guide wire ([id number]) SHEATH 5FR Terumo 1 FTC865 436812 698839 340633 5 [place] ([id number]) INFLATOR Merit 1 HA4554 944093 306265 135237 5 Songbird (ZQ3406) BOGGS 260 wire Cook Medical 1 O23355 742696 81358 203150 5 ([id number]) Cook RAABE Cook Medical 1 A26525 739121 159988 5 6FR. 90cm guide sheath Merit Impress Merit 1 [id number] 755190 505538 5 [place] 5FR. Medical 100CM catheter ([id number]) SPIDER EMBOLIC Medtronic 1 [id number] 580185 381490 5 PROTECTION DEVICE 3MM ([id number]) PROTEGE RX Medtronic 1 [id number]-7-5-30-135 859828 251463 094845 5 [id number] TAPERED 8-6MM X 30MM X 135CM stent ([id number]) Parker Plus 6 Medtronic 1 [id number] 304923 241540 781902 5 [id number] x 2 x 130 Balloon ([id number]) SHEATH 6FR Terumo 1 BRC126 820278 085923 276147 40 [place] ([id number]) MYNX PROTECTION MANAGER Access 1 IG5894 467615 225546 5 [id number] 6FR/7FR Closure ([id number]) Signature Audit [place] Stage Time Signature Unsigned Intra-Procedure 10/22/2018 Raza 2:48:59 PM Shuffield RT (R) (CV) Signatures Monitor : Raza Signature : [place] RT Date : Time : [place] [address] [place] [address]
[2018-10-22] VITALS (10 sets, daily range): BP systolic 115–159; BP diastolic 57–99; Ht 172.7 cm; Wt 74.1 kg
[2018-10-22 12:03] LABS: BASOPHILS 0.3 % (0-2); EOSINOPHILS 6.5 % (0-7); HEMATOCRIT 42.6 % (42.0-54.0); HEMOGLOBIN 14.9 g/dL (13.5-17.5); IMMATURE GRANULOCYTES 0.1 % (0-5); LYMPHOCYTES 30.8 % (15-50); MCH 32.5 pg (26.0-34.0); MCV 92.8 fL (80.0-100.0); MEAN PLATELET VOLUME 9.5 fL (7.4-10.4); MONOCYTES 6.2 % (2-11); NEUTROPHILS 56.1 % (40-80); PLATELET COUNT 199 10x3/uL (130-400); RBC 4.59 10x6/uL (4.20-6.10); RDW 12.9 % (11.5-14.5); WBC 8.8 10x3/uL (4.8-10.8)
[2018-10-22 12:07] LABS: CALC OSMOLALITY 272 mosm/kg (275-300); CHLORIDE - SERUM 100 mmol/L (98-107); POTASSIUM - SERUM 4.3 mmol/L (3.5-5.1); SODIUM 137 mmol/L (136-145); UREA NITROGEN 11 mg/dL (7-18); eGFR NON AFRICAN AMERICAN 79 mL/min (90-120)
[2018-10-22 12:08] LABS: APTT 35.8 SECONDS (22.8-39.4); INR 1.07 (0.85-1.17); PROTIME 13.4 SECONDS (11.6-15.0)
[2018-10-22 12:11] LABS: GLUCOSE 98 mg/dL (74-106)
--- NOTE | 2018-10-22 15:43 | NUR ---
1530 PATIENT RECIEVED AND ADMITTED TO THE ICU.. HOB FLAT AND REVERSE TRENDELENBURG INITIATED.. PT IS AAO WITHOUT C/O AT THIS TIME.. THERE IS A CDI DRESSING RIGHT GROIN .. NEURO CHECKS ARE WNL.. 1545 FAMILY AT BEDSIDE UDPATE IS GIVEN.. LEFT PT GLASSES AND CELL PHONE AT BEDSIDE FOR PT...
[2018-10-23] VITALS (8 sets, daily range): BP systolic 112–138; BP diastolic 55–71
--- NOTE | 2018-10-23 08:15 | NUR ---
TRINH REDDY AT BEDSIDE, UPDATE GIVEN, NEW ORDERS RECIEVED
--- NOTE | 2018-10-23 09:15 | NUR ---
LEFT FA PIC DC'D AT THIS TIME, CATH INTACT
--- NOTE | 2018-10-23 09:47 | NUR ---
D/C INSTRUCTIONS GIVEN TO PT,
--- NOTE | 2018-10-23 12:30 | NUR ---
PT DC'D AT THIS TIME WITH FAMILY MEMBER
== END 2018-10-23 12:45 | disposition home or self-care (01) | DRG 36 ==
LOC: D.SDCHOLD 10-22 11:26 → D.M2 10-22 13:00 → D.ICU 10-22 14:53
PROVIDERS: ADMIT Radiology Diagnostic Radiology; ATTEND Radiology Diagnostic Radiology
PROC: 037K3DZ Dilation of Right Internal Carotid Artery with Intraluminal Device, Percutaneous Approach (ICD-10-PCS; principal; 2018-10-22 13:00)
DX: I65.21 Occlusion and stenosis of right carotid artery (principal); F17.200 Nicotine dependence, unspecified, uncomplicated; J44.9 Chronic obstructive pulmonary disease, unspecified; E78.5 Hyperlipidemia, unspecified; E11.9 Type 2 diabetes mellitus without complications; N40.0 Benign prostatic hyperplasia without lower urinary tract symptoms

== ENCOUNTER → 2018-11-06 13:32 | Outpatient (CLI) | payer MEDICARE ==
[2018-10-22 15:14] VITALS: BMI 24.8
== END | disposition home or self-care (01) ==
LOC: D.US 13:32
PROVIDERS: ATTEND Radiology Diagnostic Radiology
DX: I65.29 Occlusion and stenosis of unspecified carotid artery (principal)

== ENCOUNTER → 2019-11-10 08:34 | Outpatient (CLI) | payer MEDICARE ==
[2018-10-22 15:14] VITALS: BMI 24.8
== END | disposition home or self-care (01) ==
LOC: D.US 08:34
PROVIDERS: ATTEND Radiology Diagnostic Radiology
DX: I65.23 Occlusion and stenosis of bilateral carotid arteries (principal)

== ENCOUNTER → 2020-07-23 07:20 | Outpatient (CLI) | payer MEDICARE ==
[2018-10-22 15:14] VITALS: BMI 24.8
--- NOTE | 2020-07-25 09:56 | EC ---
PATIENT:BRANDEE MASCORRO DATE OF SERVICE: 07/23/20 SEX: M MEDICAL RECORD: [id number] DATE OF : [birth year] [facility] AGE OF PATIENT: 69 ADMISSION DATE: 07/23/20 REFERRING PHYSICIAN: INTERPRETING PHYSICIAN: ANABEL ALICEA MD ECHOCARDIOGRAM REPORT ECHO CHARGES 4 ECHO COMPLETE Date: 07/23/20 CLINICAL DIAGNOSIS: CARDIOMYOPATHY, ASSESS EF/TRICUSPID REGURG HX OF COPD/CAD/CABG ECHOCARDIOGRAPHIC MEASUREMENTS (adult normal given) AC root (d.<3.7cm) 3.3 cm LV Septum d (<1.2 cm> 1.2 cm Valve Excursion 1.4 cm LV Septum (systole) 1.4 cm Left Atria (s.<4.0cm> 4.2 cm LVPW d(<1.2cm) 1.4 cm RV (d.<2.3cm) 4.5 cm LVPW (sytole) 1.6 cm LV diastole(<5.6CM) 5.7 cm MV E-F(>70mm/sec) cm LV systole 3.6 cm LVOT Diameter 1.7 cm MV exc.(>10mm) 1.2 cm Est.ejection fraction (50-75%) % DOPPLER: LVIT cm/sec A 72.0 cm/sec E 52.0 cm/sec LA cm/sec RVSP 23 mmHg LVOT 113 cm/sec AOP1/2T m/s Asc. Ao 151 cm/sec RVOT 52 cm/sec RA cm/sec PA 90 cm/sec AV Gradient Peak 9.14 mmHg AV Mean 4.74 mmHg AV Area 1.6 cm MV Gradient Peak 2.09 mmHg MV Mean 0.76 mmHg MV Area cm COMMENTS: Farmworker Machine: 2 UDAY MASON Clerical And Office Support Workers: 3 Dr. Conn TAPE# PACS Pericardial Effusion N DATE OF SERVICE: 07/23/2020 Adequate 2D, color-flow imaging, spectral Doppler, and M-Mode. FINDINGS: Mild LVH. LV internal dimension is normal. Wall motion is normal. EF is greater than or equal to 55%. Aortic valve is sclerotic. No septation. Left atrium mildly dilated at 4.2 cm. Mitral valve shows no prolapse. Mild MR. Right side is grossly normal. Trace TR. ECHOCARDIOGRAM REPORT [id number] BRANDEE MASCORRO TRANSINT:[id number] Voice Confirmation ID: [id number] DOCUMENT ID: [id number] ANABEL ALICEA MD at 0956 CC: [id number] DICTATION DATE: 07/23/20 1225 FRETTED INSTRUMENT REPAIRER: 07/23/20 2226 DEP CLI 07/23/20 [place] [id number] [place] [id number]
== END | disposition home or self-care (01) ==
LOC: D.HCCECHO 07:20
PROVIDERS: ATTEND Internal Medicine Interventional Cardiology
DX: I42.9 Cardiomyopathy, unspecified (principal)